=== PATIENT | male | born 1995 | race Caucasian/White ===

== ENCOUNTER 2017-05-31 02:58 | Emergency (ER) | payer OTHER ==
[2017-05-31] MEDS: FLUMAZENIL 0.1 MG/ML 5ML VIAL IV ONE (03:55)
[2017-05-31] MEDS: 0.9 % SODIUM CHLORIDE 1,000 ML IV SCH (03:55)
[2017-05-31] MEDS ORDERED: 0.9 % SODIUM CHLORIDE 1,000 ML IV ONE (03:56)
[2017-05-31 04:06] LABS: BASOPHILS % 0.5 (0.0-1.5); EOSINOPHILS % 1.9 % (0.0-6.8); MEAN CORPUSCULAR VOLUME 88.4 fl (80.0-100.0); MONOCYTES % 3.6 % (0.0-11.0); NEUTROPHILS # 7.5 # k/uL (1.4-7.7)
[2017-05-31 04:18] LABS: eGFR (African) > 60; eGFR (Non-African) > 60
[2017-05-31] MEDS: ONDANSETRON HCL/PF 4 MG/ 2ML VIAL IVP ONE (04:35)
[2017-05-31] MEDS: POTASSIUM CHLORIDE 20 MEQ TABLET.ER PO ONE (04:40)
--- NOTE | 2017-05-31 05:54 | ED Physician Documentation ---
General Adult - HISTORIAN Historian: patient - HPI Stated Complaint: Alcohol and Drug Use Chief Complaint: General Adult Additional Information: Ryan Oliver patient, escaped program and snorted Valium, drank ETOH Onset: hours (2) Timing: still present Severity: moderate Modifying Factors: In Ryan Oliver for methampheatmine abuse Further Comments: no - ROS CONST: no problems EYES/ENT: none CVS/RESP: none GI/: nausea MS/SKIN/LYMPH: none NEURO/PSYCH: other (increased somnolence) - PAST HX Past History: other (methamphetamine abuse, etoh abuse, apparent benzodiazepine abuse) Other History: seizure disorder Surgeries/Procedures: none Immunizations: referred to PCP Allergies/Adverse Reactions: Allergies Allergy/AdvReac Type Severity Reaction Status Date / Time No Known Allergies Allergy Unverified 05/31/17 03:13 Home Medications: Ambulatory Orders Medication Instructions Recorded Melatonin 5 mg PO HS 05/31/17 Promethazine HCl [Phenergan] 25 mg IJ Q6H PRN 05/31/17 - SOCIAL HX Smoking History: cigarettes Alcohol Use: heavy Drug Use: methamphetamines, other (benzodiazepine) - FAMILY HX Family History: Yes - VITAL SIGNS Vital Signs: Vital Signs Temp Pulse Resp BP Pulse Ox 98 F 85 18 113/69 96 05/31/17 02:58 05/31/17 02:58 05/31/17 02:58 05/31/17 02:58 05/31/17 02:58 - REVIEWED ASSESSMENTS Nursing Assessment Reviewed: Yes Vitals Reviewed: Yes Progress - Results/Orders Results/Orders: cbc, cmp ordered - Progress Progress: Pt. given 1 liter NS IV and 0.4 mg Romazicon ivp with BP elevation from 100/60 to 113/72 and O2 sat from 87% ra to 95% ra. Respirations sonorous on presentation, after treatment light and even, easily arousable. Critical Care Note - Critical Care Note Total Time (mins): 0 ED Results Lab/Radiology - Lab Results Lab Results: Lab Results 05/31/17 05/31/17 03:47 03:47 WBC 10.30 K/ul K/ul (4.00-12.00) RBC 4.64 M/ul M/ul (3.90-5.20) Hgb 13.9 g/dL g/dL (12.0-18.0) Hct 41.0 % % (37.0-53.0) MCV 88.4 fl fl (80.0-100.0) MCH 30.0 pg pg (28.0-34.0) MCHC 33.9 g/dL g/dL (30.0-36.0) RDW 13.9 % % (11.3-14.3) Plt Count 206 K/mm3 K/mm3 (130-400) Neut % (Auto) 72.2 % % (39.0-79.0) Lymph % (Auto) 20.7 % % (16.0-50.0) Cotton % (Auto) 3.6 % % (0.0-11.0) Eos % (Auto) 1.9 % % (0.0-6.8) Baso % (Auto) 0.5 (0.0-1.5) Neut # (Auto) 7.5 # k/uL # k/uL (1.4-7.7) Lymph # (Auto) 2.1 # k/uL # k/uL (0.6-4.0) Cotton # (Auto) 0.4 # k/uL # k/uL (0.0-0.9) Eos # (Auto) 0.2 # k/uL # k/uL (0.0-0.6) Baso # (Auto) 0.1 # k/uL # k/uL (0.0-0.5) Reactive Lymphs % 0.9 % % (0.0-5.0) Reactive Lymphs # 0.1 # k/uL # k/uL (0.0-0.8) Sodium 137 mmol/L mmol/L (136-145) Potassium 3.3 mmol/L L mmol/L (3.5-5.0) Chloride 106 mmol/L mmol/L (98-110) Carbon Dioxide 29 mmol/L mmol/L (20-32) BUN 13 mg/dL mg/dL (10-26) Creatinine 0.6 mg/dL mg/dL (0.4-1.5) Estimated Creat Clear 208 Est GFR ( Amer) > 60 (60 - ) Est GFR (Non-Af Amer) > 60 (60 - ) Glucose 97 mg/dL mg/dL (70-99) Calcium 9.2 mg/dL mg/dL (8.5-10.5) Total Bilirubin 0.2 mg/dL mg/dL (0.2-1.2) AST 22 U/L U/L (0-41) ALT 40 U/L U/L (0-45) Alkaline Phosphatase 71 U/L U/L (46-116) Total Protein 6.9 g/dL g/dL (6.0-8.5) Albumin 4.3 g/dL g/dL (3.0-5.5) - Radiology Radiology Impressions: none ordered - Orders Orders: ED Orders Category Date Time Status CBC/PLATELET/DIFF Routine Lab 05/31/17 03:47 Completed CMP Routine Lab 05/31/17 03:47 Completed 0.9 % Sodium Chloride [Normal Saline] 1,000 ml Med 05/31/17 04:00 Ordered IV .Q1H Flumazenil [Romazicon] Med 05/31/17 03:47 Discontinued 0.4 mg IV NOW ONE Ondansetron HCl/Pf [Zofran 4 mg/2 ml] Med 05/31/17 04:22 Discontinued 4 mg IVP NOW ONE Potassium Chloride [Klor-Con M20] Med 05/31/17 04:41 Discontinued 40 meq PO NOW ONE General Adult Physical Exam - PHYSICAL EXAM GENERAL APPEARANCE: moderate distress EENT: ENT inspection normal, pharynx normal, no signs of dehydration, other ( pupils pinpoint, normal after tx) NECK: normal inspection, thyroid normal, supple, thyromegaly RESPIRATORY: other (sonorous respiations, O2 sat 87% on RA while asleep, 90-92% when awake) CVS: reg rate & rhythm, heart sounds normal, equal pulses, no murmur, no gallop , PMI nml, no JVD ABDOMEN: soft, no organomegaly, normal bowel sounds, no abdominal bruit, no distension, non-tender BACK: normal inspection, no CVA tenderness SKIN: warm/dry, normal color EXTREMITIES: non-tender, normal range of motion, no evidence of injury, no edema NEURO: CN's nml as tested, motor nml, sensation nml, depressed mood/affect ( somnolent, improved significantly after Romazicon) Discharge Clincal Impression: Benzodiazepine abuse Referrals: Primary Doctor,No [Primary Care Provider] - 2 Days Home Medications: Ambulatory Orders Melatonin 5 mg PO HS 05/31/17 Promethazine HCl [Phenergan] 25 mg IJ Q6H PRN 05/31/17 Comments: Pt. discharged in much improved and stable condition with no seizure activity, bp 113/62, alert state and O2 saturation of 95% on room air. No further medications needed at this time. Continue [facility]. Condition: Stable Disposition: 01 HOME, SELF-CARE Decision to Admit: NO Decision Time: 05:00
[2017-05-31 06:02] VITALS: BP 130/62
== END 2017-05-31 06:00 | disposition home or self-care (01) ==
LOC: ED 02:58
DX: F19.10 Other psychoactive substance abuse, uncomplicated (principal); F10.10 Alcohol abuse, uncomplicated
CPT/HCPCS: 80053; 85025; A9270; J2405; J3490; J7030; 96361; 96374; 96375; 99283; S1016